=== PATIENT | female | born 1940 | race Caucasian/White ===

== ENCOUNTER 2017-01-08 10:46 | Day surgery (SDC) | payer MEDICARE ==
--- NOTE | 2017-01-07 12:54 | PCM.HPANE ---
Patient Data Surgeon Admitting Provider: Attending Provider:Fabien Thomas MD Primary Care Physician:Dain Schuler MD Other Provider:[facility] Reason for Visit Microscopic Colitis Ht/WT & BMI Body Mass Index Allergies Coded Allergies: fluconazole (Verified Allergy, Intermediate, Hives, 01/07/17) Sulfa (Sulfonamide Antibiotics) (Verified Allergy, Unknown, 01/07/17) adhesive tape (Verified Allergy, Unknown, 01/07/17) amoxicillin (Verified Allergy, Unknown, 01/07/17) antipyrine (Verified Allergy, Unknown, 01/07/17) benzocaine (Verified Allergy, Unknown, 01/07/17) clavulanic acid (Verified Allergy, Unknown, 01/07/17) glycerin (Verified Allergy, Unknown, 01/07/17) meperidine (Verified Allergy, Unknown, Nausea,Vomiting, 01/07/17) neomycin (Verified Allergy, Unknown, 01/07/17) polymyxin B (Verified Allergy, Unknown, 01/07/17) Past Anesthesia History Anesthesia History: Denies:: Abnormal Airway, Anesthesia Reactions, Difficult Intubation, Fam Anesthesia Reaction, Fam Malignant Hypertherm, Malignant Hyperthermia Medications Reported Medications Oxybutynin Chloride 5 Mg Tablet1.25 Mg PO DAILY Ref 0 01/07/17 Nortriptyline 10 Mg Wbomtlq02 Mg PO HS 01/07/17 Multivitamin (Multivitamins)1 Each Capsule1 Each PO DAILY 01/07/17 [Midrin] No Conflict Check2 Capsule PO DIRECTED PRN Headache 01/07/17 Melatonin 3 Mg Tab.rapdis3 Mg PO HS PRN Insomnia 01/07/17 Magnesium Oxide (Magnesium)400 Mg Abwyuq472 Mg PO DAILY 01/07/17 Lisinopril 5 Mg Tablet5 Mg PO DAILY #30 TABLET Ref 0 01/07/17 Docusate Sodium (Colace)100 Mg Sdgicvv568 Mg PO HS PRN For Constipation Ref 0 01/07/17 Dextran 70/Hypromellose/Pf (Artificial Tears Drops)1 Each Droperette1 Drop BOTH_ EYES DIRECTED #1 BOTTLE 01/07/17 Alprazolam 0.25 Mg Tablet0.25 Mg PO HS PRN Insomnia Ref 0 01/07/17 Acetaminophen 500 Mg Nuarfgf651 Mg PO QID PRN For Pain 01/07/17 Discontinued Reported Medications Cholecalciferol (Vitamin D3) (Vitamin D3)1,000 Unit Tab.chew1,000 Unit PO DAILY 01/07/17 Omeprazole 20 Mg Capsule.dr20 Mg PO DAILY Ref 0 01/07/17 [place]-3 Fatty Acids/Fish Oil ([place] 3 1,000 mg Softgel)1 Each Capsule1 Each PO WEEKLY 01/07/17 Naproxen Sodium 220 Mg Epwqjyo750 Mg PO BID PRN For Pain Ref 0 01/07/17 Calcium Carbonate/Vitamin D3 (Calcium 500 mg Chewable Tablet)1 Each Tab.chew3 Each PO DAILY 01/07/17 Aspirin 81 Mg Ejyczt17 Mg PO DAILY Ref 0 01/07/17 History History of ENT Problems?: Yes HEENT History: Denies:: Abnormal Airway Cataracts Difficult Intubation Dysphagia Glaucoma Hearing Problem Sinus Problem TMJ Denture Type: None Teeth Condition: Within Normal Limits Hx of Heart Problems?: Yes Cardiovascular History: Denies:: AICD Abdominal Aortic Aneurism Atrial Fibrillation Cardiac Surgery Chest Pain Congestive Heart Failure Coronary Artery Disease Edema Heart Murmur Hypertension Irregular Heartbeat Pacemaker Peripheral Vascular Rheumatic Fever Thrombophlebitis Valvular Heart Disease Hx of Respiratory Problem?: Yes Respiratory History: Denies:: Asthma COPD Chest Surgery Cough Dyspnea Emphysema Hemoptysis Oxygen Administration Pneumonia Pulmonary Embolism Tuberculosis Use of C-PAP Machine Use of Inhalers / NEBS Hx Neurologic Problems?: Yes Neurological History: Denies:: Alzheimer's Disease CVA Dementia Dizziness Headaches Multiple Sclerosis Parkinson's Disease Peripheral Neuropathy Seizures TIA Hx of GI Problems?: Yes Gastrointestinal History: Denies:: Cirrhosis Diverticulitis Gall Bladder Disease Gastroesphageal Reflux Gastrointestinal Bleeding Heartburn Hepatitis Hiatal Hernia Liver Disease Rectal Bleeding Hx of Problems?: Yes Genitourinary History: Denies:: HX of Hemodialysis Kidney Stones Urinary Tract Infection HX of Peritoneal Dialysis: Yes Female Hx: Denies:: Currently Endometriosis Pelvic Inflammatory Problems with Breasts? Skin History: Denies:: History Skin Disorders? Pressure Ulcers Hx Musculoskeletal Problems?: Yes Musculoskeletal History: Denies:: Back Injury Degenerative Joint Fibromyalgia Joint Replacement Musculoskeletal Trauma Myasthenia Gravis Osteoarthritis Rheumatoid Arthritis Systemic Lupus Hx of Psycho/Social Problems?: Yes Psycho Social History: Denies:: Anxiety Bipolar Disorder Hx Depression Suicide Attempt Hx Surgeries?: Yes Hx Any Other Health Problems?: Yes Other History: Denies:: Cancer Endocrine Disease Hospitalization Thyroid Disease History Blood Transfusions: Denies:: Accept Blood Products? Blood Transfuse Reaction Blood Transfusions Stop/Bang Risk Assessment Category Category 1A: Patient has history of documented sleep apnea, and HAS NOT received any narcotic, sedative or anesthesia administration during this stay. Category 1B: Patient has history of documented sleep apnea, and HAS received any narcotic , sedative or anesthesia administration during this stay Category 2: Patient has SUSPECTED Obstructive Sleep Apnea, and HAS received any narcotic , sedative or anesthesia administration during this stay. Category 3: Patient has SUSPECTED Obstructive Sleep Apnea and HAS NOT received narcotic, sedative or anesthesia administration during this stay. Category 4: Outpatient in Procedural Areas with known sleep apnea or who screen positive for High Risk via the STOP/BANG questionnaire. Exam Exam General Appearance: Alert, Oriented X3, Cooperative HEENT/AIRWAY: MP 2 Lungs: Clear to Auscultation Heart: Exam Unremarkable Plan Impression Patient chart reviewed, patient interviewed and anesthestic plan with risks, benefits, and alternatives discussed, and informed consent obtained. ASA Physical Status: ASA2 Mod Systemic Disease Anesthetic Plan: GA Bene/Risks/Altern/Consents: Yes HP Complete Prior to Induction: Yes Brandon Carmichael MD Jan 07, 2017 12:54
[~2017-01-08] VITALS: Ht 172.7 cm; Wt 71.6 kg
[~2017-01-08 10:46] MED LIST: ACET500C49 PO; ALPR0.254 PO; ASPI-973 PO; CALC-952 PO; CHOL10008 PO; DEXT1DRO8 BOTH_EYES; DOCU-41 PO; LISI-571 PO; Lactated Ringer's 1,000 ML IV ONE; MAGN400T39 PO; MELA3TAB46 PO; MIDRIN PO; MULT1CAP33 PO; NAPR220C16 PO; NORT10CA PO; OMEG1CAP56 PO; OMEP20CA11 PO; OXYB5TAB10 PO
[2017-01-08] MEDS ORDERED: Propofol 10,000 mCg/mL 20 mL Inj ONE (10:47)
[2017-01-08] MEDS ORDERED: fentaNYL-PF 50 mCg/mL 2 mL Inj ONE (10:47)
[2017-01-08 11:09] VITALS: BP 110/69; PULSE 76; RESP 17; O2SAT 99
[2017-01-08] MEDS ORDERED: Lactated Ringer's 1,000 ML IV SCH (11:41)
[2017-01-08] MEDS ORDERED: MetoCLOpramide 5 mg/mL 2 mL Inj IVPUSH PRN (11:45)
[2017-01-08] MEDS ORDERED: Ondansetron 2 mg/mL 2 mL Inj IVPUSH PRN (11:45)
--- NOTE | 2017-01-08 12:00 | PCM.ANEP1 ---
Post Anesthesia PACU Phase 1 Assessment Vital Signs Vital Signs Date Time Temp Pulse Resp B/P Pulse Ox O2 Delivery O2 Flow Rate FiO2 01/08/17 11:09 36.7 76 17 110/69 99 Room Air Anesthetic Administered: GA Level of Alertness: Awake, talking PRINCE's with Equal Strength: Yes Pain: No Nausea or Vomiting: No CV Function & Hydration Stable: Yes Airway Device: Oxygen Delivery: Room Air Lungs: Normal Air Movement PACU Phase 2 Assessment Complications: No Follow up Care: No Patient Instructions Provided: N/A Brandon Carmichael MD Jan 08, 2017 12:00
[2017-01-08 12:03] VITALS: BP 95/53; PULSE 69; RESP 16; O2SAT 98
[2017-01-08 12:13] VITALS: BP 88/56; PULSE 70; RESP 16; O2SAT 98
[2017-01-08 12:23] VITALS: BP 96/61; PULSE 62; RESP 16; O2SAT 100
[2017-01-08 12:33] VITALS: BP 100/62; PULSE 65; RESP 16; O2SAT 100
--- NOTE | 2017-01-08 13:51 | ENDO ---
[address] [address] ENDOSCOPY PROCEDURE PATIENT: MAYRA CHAKRABORTY : 1940 MR#: [id number] ADMIT: 01/08/2017 JOB ID: [id number] DATE OF SERVICE: 01/08/2017 TYPE OF OPERATION: Colonoscopy, biopsy. PREOPERATIVE DIAGNOSIS: Change in bowel habits. POSTOPERATIVE DIAGNOSIS: Normal colonoscopy, status post biopsy. ANESTHESIA: Monitored anesthesia care. COMPLICATIONS: None. BLOOD LOSS: Minimal. DESCRIPTION OF PROCEDURE: After risks and benefits explained to patient, informed consent was obtained. After anesthesia administered, colonoscope was then inserted from the rectum to the terminal ileum. Mucosa carefully examined. The prep of the patient was excellent. After the procedure was done, the scope withdrawn, procedure terminated. FINDINGS: Upon inspection of the anus, no masses, hemorrhoids, ulcers, or fissures that were seen. Throughout the entire examination, there were no polyps, masses, or lesions. Biopsies taken of the terminal ileum and random colon. Retroflexion was normal. IMPRESSION: Normal colonoscopy, status post biopsy. RECOMMENDATION: Await pathology results. Follow up with referral provider as needed.
--- NOTE | 2017-01-09 17:02 | PATH ---
SURGICAL PATHOLOGY Attending Physician:Fabien Thomas MD CASE STATUS: Signed Out PATIENT NAME: MAYRA CHAKRABORTY PID: [id number] : 1940 DATE COLLECTED:01/08/2017 22:30 SPECIMEN: 1: Ileum, Biopsy 2: Colon, Biopsy CLINICAL HISTORY: 1). TERMINAL ILEUM 2). RANDOM COLON FINAL DIAGNOSIS: 1.TERMINAL ILEUM, BIOPSY: SMALL INTESTINAL MUCOSA WITH NO DIAGNOSTIC ABNORMALITY. Negative for active inflammation, dysplasia, and malignancy. 2.COLON, RANDOM BIOPSIES:PATCHY INTRAEPITHELIAL LYMPHOCYTOSIS (PLEASE SEE COMMENT). Negative for dysplasia and malignancy. ICD10 K52.89 NOTE: Part 2. Histologic sections demonstrate superficial portions of colorectal mucosa with a well-preserved crypt architecture and intraepithelial lymphocytosis (scattered regions with greater than 15 lymphocytes per 100 epithelial cells). These findings are suggestive of possible lymphocytic colitis, in the appropriate clinical context. There is no evidence of dysplasia, neoplasia, granulomas, or regions of active inflammation. GROSS DESCRIPTION: 1. Received in formalin, labeled with the patient' s name and "terminal ileum", is one fragment of garcia, soft tissue measuring 0.5 x 0.2 x 0.2 cm. Completely submitted in cassette 1A. 2. Received in formalin, labeled with the patient' s name and "random colon", are multiple pieces of garcia, soft tissue ranging from 0.2 x 0.2 x 0.2 cm to 0.4 x 0.3 x 0.2 cm. The fragments are totally submitted in cassette 2A. [id number]) MICRO DESCRIPTION: See diagnosis. ICD-9 CODES: CPT CODES: 1: 64695 2: 60747 Electronically Signed Out Tish Blanco MD [facility] [address], [place] [address] Technical component performed at [facility], [address], [place], [address]
== END 2017-01-08 23:59 | disposition home or self-care (01) ==
LOC: END 10:46
PROVIDERS: ATTEND Internal Medicine Gastroenterology
DX: R19.4 Change in bowel habit (principal); D72.820 Lymphocytosis (symptomatic); Z86.010 Personal history of colon polyps; Z80.0 Family history of malignant neoplasm of digestive organs; K52.839 Microscopic colitis, unspecified; G47.33 Obstructive sleep apnea (adult) (pediatric); Z79.82 Long term (current) use of aspirin
CPT/HCPCS: 45380; J3010; J7120